=== PATIENT | female | born 1975 | race Hispanic/Latino ===

== ENCOUNTER 2019-01-21 01:39 | Emergency (ER) | payer OTHER ==
[2019-01-21 02:15] LABS: APPEARANCE,URINE Turbid (CLEAR); BILIRUBIN,URINE Negative (NEGATIVE); COLOR,URINE Yellow (YELLOW); GLUCOSE, URINE (UA) Negative (NEGATIVE); KETONES,URINE Negative (NEGATIVE); LEUKOCYTE ESTERASE ,URINE Trace (NEGATIVE); NITRATE,URINE Negative (NEGATIVE); OCCULT BLOOD,URINE Negative (NEGATIVE); PROTEIN,URINE Trace mg/dL (NEGATIVE); UROBILINOGEN,URINE 0.2 mg/dL (0.2-1.0)
[2019-01-21] MEDS ORDERED: CEFTRIAXONE SODIUM 500 MG VIAL ONE (02:19)
[2019-01-21 02:20] LABS: HCG,QUAL RESULT NEGATIVE (NEGATIVE)
[2019-01-21] MEDS ORDERED: AZITHROMYCIN 250 MG TABLET PO ONE (02:20)
[2019-01-21 02:23] LABS: BACTERIA,URINE None Seen /HPF (None Seen); RBC,URINE None Seen /HPF (0-1); SQUAMOUS EPITHELIAL CELL,UR Moderate /HPF (0-2); WBC,URINE 0-1 /HPF (0-1)
== END 2019-01-21 03:06 | disposition home or self-care (01) ==
LOC: EDH 01:39
DX: N76.0 Acute vaginitis (principal); I10 Essential (primary) hypertension
CPT/HCPCS: 81001; 81025; 87486; 87797; 96372; 99284; J0696

== ENCOUNTER 2019-03-11 00:17 | Emergency (ER) | payer SELFPAY ==
[2019-03-11 00:49] LABS: APPEARANCE,URINE Clear (CLEAR); BILIRUBIN,URINE Negative (NEGATIVE); COLOR,URINE Yellow (YELLOW); GLUCOSE, URINE (UA) 500 mg/dL (NEGATIVE); KETONES,URINE Negative (NEGATIVE); LEUKOCYTE ESTERASE ,URINE Moderate (NEGATIVE); NITRATE,URINE Negative (NEGATIVE); OCCULT BLOOD,URINE Negative (NEGATIVE); PH,URINE 6.5 (5.0-8.0); PROTEIN,URINE Negative (NEGATIVE); UROBILINOGEN,URINE 0.2 mg/dL (0.2-1.0)
[2019-03-11 00:57] LABS: HCG,QUAL RESULT NEGATIVE (NEGATIVE)
[2019-03-11 00:58] LABS: RBC,URINE None Seen /HPF (0-1)
[2019-03-11 00:59] LABS: BACTERIA,URINE Few /HPF (None Seen); MUCUS,URINE Few LPF (None Seen); SQUAMOUS EPITHELIAL CELL,UR Moderate /HPF (0-2)
[2019-03-11] MEDS ORDERED: LIDOCAINE HCL-MPF 1% 2ML VIAL ONE (01:01)
[2019-03-11] MEDS ORDERED: CEFTRIAXONE SODIUM 500 MG VIAL ONE (01:01)
[2019-03-11] MEDS ORDERED: AZITHROMYCIN 250 MG TABLET PO ONE (01:02)
== END 2019-03-11 05:02 | disposition home or self-care (01) ==
LOC: EDH 00:17
DX: A64 Unspecified sexually transmitted disease (principal); B37.3 Candidiasis of vulva and vagina; I10 Essential (primary) hypertension; Z98.890 Other specified postprocedural states
CPT/HCPCS: 81001; 81025; 87486; 87797; 96372; 99284; J0696; J3490